=== PATIENT | female | born 1970 | race Caucasian/White ===

== ENCOUNTER 2019-12-03 11:31 | Emergency (ER) | payer MEDICAID, OTHER ==
[~2019-12-03] VITALS: Ht 170.2 cm; Wt 81.6 kg
[2019-12-03 11:50] VITALS: BP 109/63
== END 2019-12-03 13:57 | disposition left against medical advice (07) ==
LOC: ER 11:31
DX: M25.562 Pain in left knee (principal); Z53.21 Procedure and treatment not carried out due to patient leaving prior to being seen by health care provider
CPT/HCPCS: 73562; J7030